=== PATIENT | male | born 1960 | race Caucasian/White ===

== ENCOUNTER 2017-09-18 13:03 | Inpatient (IN) | payer OTHER ==
[2017-09-18] MEDS ORDERED: NITROGLYCERIN (SL) 0.4 MG TAB SL (13:30)
[2017-09-18] MEDS: NITROGLYCERIN 2% 1 GM OINT PKT TD (13:32)
[2017-09-18] MEDS: morphine 4 MG/ML VIAL IV (13:40)
[2017-09-18] MEDS: ONDANSETRON 4 MG INJ IV (13:40)
[2017-09-18 13:57] LABS: ADD MAN DIFF? NO
[2017-09-18 14:00] LABS: BASOPHILS % 0.5 % (0.0-2.0); EOSINOPHILS # 0.3 10^3/ul (0.0-0.5); EOSINOPHILS % 3.2 % (0.0-7.0); HEMATOCRIT 41.1 % (42.0-52.0); HEMOGLOBIN 13.9 g/dl (14.0-18.0); LYMPHOCYTES # 2.7 10^3/ul (0.8-2.9); LYMPHOCYTES % 32.2 % (15.0-51.0); MEAN CORPUSCULAR HGB CONC 33.8 g/dl (32.0-37.0); MEAN CORPUSCULAR VOLUME 94.5 fl (82.0-101.0); MEAN PLATELET VOLUME 11.1 fl (7.4-10.4); MONOCYTE # 0.6 10^3/ul (0.3-0.9); MONOCYTES % 6.7 % (0.0-11.0); NEUTROPHIL # 4.7 10^3/ul (1.6-7.5); PLATELET COUNT 206 10^3/UL (140-415); RED BLOOD COUNT 4.35 10^6/ul (4.70-6.10); RED CELL DISTRIBUTION WIDTH 13.7 % (11.5-14.5)
[2017-09-18 14:00] LABS: WHITE BLOOD COUNT 8.2 10^3/ul (4.8-10.8)
[2017-09-18 14:19] LABS: ANION GAP 16 (8-16); BLOOD UREA NITROGEN 20 mg/dl (7-20); CALCIUM 8.8 mg/dl (8.4-10.2); CARBON DIOXIDE 25 mmol/L (21-31); CHLORIDE 107 mmol/L (97-110); CREATININE 0.73 mg/dl (0.61-1.24); GLUCOSE 140 mg/dl (70-220); POTASSIUM 4.1 mmol/L (3.5-5.1); SODIUM 144 mmol/L (135-144)
[2017-09-18 14:35] LABS: TROPONIN-I < 0.012 ng/ml (0.00-0.12)
[2017-09-18] MEDS ORDERED: ONDANSETRON 4 MG INJ IV ×2 (15:00→16:30)
[2017-09-18] MEDS ORDERED: ACETAMINOPHEN 325 MG TAB PO ×2 (15:00→16:30)
[2017-09-18] MEDS ORDERED: HYDROCODONE/APAP (5/325) TAB PO ×2 (16:30)
[2017-09-18] MEDS ORDERED: NACL 0.9% 3 ML SYG IV (16:30)
[2017-09-18] MEDS ORDERED: ACETAMINOPHEN 650 MG SUPP PR (16:30)
[2017-09-18] MEDS ORDERED: morphine 2 MG INJ IV (16:30)
[2017-09-18] MEDS ORDERED: MAGNESIUM HYDROXIDE 30ML CUP PO (16:30)
[2017-09-18] MEDS ORDERED: BISACODYL 10 MG SUPP PR (16:30)
[2017-09-18] MEDS ORDERED: DOCUSATE SODIUM 100 MG CAP PO (16:30)
[2017-09-18] MEDS ORDERED: ALBUTEROL/IPRATROPIUM (NEB) 3 ML AMP HHN (17:00)
[2017-09-18 20:00] LABS: CREATINE KINASE 50 IU/L (23-200)
[2017-09-18 20:14] LABS: CK INDEX 0.9
[2017-09-18 20:22] LABS: CK-MB 0.43 ng/ml (0.0-2.4); TROPONIN-I < 0.012 ng/ml (0.00-0.12)
[2017-09-18] MEDS ORDERED: TICAGRELOR 90 MG TABLET PO (21:00)
[2017-09-19 01:19] LABS: CREATINE KINASE 46 IU/L (23-200)
[2017-09-19 01:31] LABS: CK INDEX 0.9; TROPONIN-I < 0.012 ng/ml (0.00-0.12)
[2017-09-19] MEDS: PANTOPRAZOLE 40 MG INJ IV (05:45)
[2017-09-19 06:25] LABS: ADD MAN DIFF? NO
[2017-09-19 06:29] LABS: BASOPHILS % 0.2 % (0.0-2.0); EOSINOPHILS # 0.3 10^3/ul (0.0-0.5); EOSINOPHILS % 3.4 % (0.0-7.0); HEMATOCRIT 40.8 % (42.0-52.0); HEMOGLOBIN 13.6 g/dl (14.0-18.0); LYMPHOCYTES # 2.7 10^3/ul (0.8-2.9); LYMPHOCYTES % 30.3 % (15.0-51.0); MEAN CORPUSCULAR HEMOGLOBIN 31.4 pg (29.0-33.0); MEAN CORPUSCULAR HGB CONC 33.3 g/dl (32.0-37.0); MEAN CORPUSCULAR VOLUME 94.2 fl (82.0-101.0); MEAN PLATELET VOLUME 11.2 fl (7.4-10.4); MONOCYTE # 0.6 10^3/ul (0.3-0.9); MONOCYTES % 7.2 % (0.0-11.0); NEUTROPHIL # 5.1 10^3/ul (1.6-7.5); NEUTROPHILS % 58.6 % (39.0-77.0); PLATELET COUNT 176 10^3/UL (140-415); RED BLOOD COUNT 4.33 10^6/ul (4.70-6.10); RED CELL DISTRIBUTION WIDTH 13.8 % (11.5-14.5)
[2017-09-19 06:29] LABS: WHITE BLOOD COUNT 8.7 10^3/ul (4.8-10.8)
[2017-09-19 06:49] LABS: CREATINE KINASE 37 IU/L (23-200)
[2017-09-19 06:53] LABS: INR 0.93; PROTIME 12.6 Sec (11.9-14.9)
[2017-09-19 06:56] LABS: ALANINE AMINOTRANSFERASE 46 IU/L (13-69); ALBUMIN 3.9 g/dl (3.3-4.9); ALBUMIN/GLOBULIN RATIO 1.34; ALKALINE PHOSPHATASE 48 IU/L (42-121); ANION GAP 14 (8-16); ASPARTATE AMINO TRANSFERASE 25 IU/L (15-46); BILIRUBIN,INDIRECT 0.3 mg/dl (0-1.1); BILIRUBIN,TOTAL 0.3 mg/dl (0.2-1.3); BLOOD UREA NITROGEN 25 mg/dl (7-20); CALCIUM 8.7 mg/dl (8.4-10.2); CARBON DIOXIDE 27 mmol/L (21-31); CHLORIDE 107 mmol/L (97-110); CHOL/HDL RATIO 4.9 RATIO; CHOLESTEROL 174 mg/dl (100-200); CREATININE 0.78 mg/dl (0.61-1.24); GLUCOSE 140 mg/dl (70-220); HDL CHOLESTEROL 35 mg/dl (30-78); LDL CHOLESTEROL,CALCULATED 89 mg/dl; MAGNESIUM 2.1 mg/dl (1.7-2.5); POTASSIUM 4.2 mmol/L (3.5-5.1); SODIUM 144 mmol/L (135-144); TOTAL PROTEIN 6.8 g/dl (6.1-8.1); TRIGLYCERIDES 250 mg/dl (0-149)
[2017-09-19 07:03] LABS: CK INDEX 1.3; CK-MB 0.47 ng/ml (0.0-2.4); TROPONIN-I < 0.012 ng/ml (0.00-0.12)
[2017-09-19 07:11] LABS: HEMOGLOBIN A1C 6.1 % (0-5.9)
[2017-09-19 07:30] LABS: B-TYPE NATRIURETIC PEPTIDE 397 PG/ML (0-125)
[2017-09-19] MEDS: LISINOPRIL 5 MG TAB PO (08:28)
[2017-09-19] MEDS: ASPIRIN (EC) 81 MG TAB PO (08:28)
[2017-09-19] MEDS: ATORVASTATIN 80 MG TAB PO (09:00)
[2017-09-19] MEDS: REGADENOSON 0.4 MG/5 ML SYG (09:53)
[2017-09-19 10:12] LABS: FREE THYROXINE INDEX (Calc) 2.42 ug/ml (0.65-3.89); T3 UPTAKE 37.3 % (23.5-40.5); T4 (THYROXINE) 6.5 ug/dl (5.5-11.0)
[2017-09-19] MEDS ORDERED: SOD CHLORIDE 0.9% 100 ML (18:25)
[2017-09-19] MEDS ORDERED: IOHEXOL 100 ML (18:25)
[2017-09-20] MEDS: PANTOPRAZOLE 40 MG INJ IV (05:57)
[2017-09-20] MEDS: ATORVASTATIN 80 MG TAB PO (08:16)
[2017-09-20] MEDS: LISINOPRIL 5 MG TAB PO (08:17)
[2017-09-20] MEDS: ASPIRIN (EC) 81 MG TAB PO (08:17)
[2017-09-21] MEDS: PANTOPRAZOLE 40 MG INJ IV (05:54)
[2017-09-21] MEDS: ASPIRIN (EC) 81 MG TAB PO (08:57)
[2017-09-21] MEDS: LISINOPRIL 5 MG TAB PO (08:57)
[2017-09-21] MEDS: ATORVASTATIN 80 MG TAB PO (11:56)
[2017-09-22] MEDS: PANTOPRAZOLE 40 MG INJ IV (05:34)
[2017-09-22] MEDS: ASPIRIN (EC) 81 MG TAB PO (08:42)
[2017-09-22] MEDS: ATORVASTATIN 80 MG TAB PO (08:43)
[2017-09-22] MEDS: LISINOPRIL 5 MG TAB PO (08:43)
[2017-09-22 08:57] LABS: ADD MAN DIFF? NO
[2017-09-22 09:06] LABS: BASOPHILS % 0.4 % (0.0-2.0); EOSINOPHILS # 0.2 10^3/ul (0.0-0.5); EOSINOPHILS % 2.6 % (0.0-7.0); HEMATOCRIT 41.2 % (42.0-52.0); HEMOGLOBIN 14.2 g/dl (14.0-18.0); LYMPHOCYTES # 2.5 10^3/ul (0.8-2.9); LYMPHOCYTES % 29.9 % (15.0-51.0); MEAN CORPUSCULAR HEMOGLOBIN 31.9 pg (29.0-33.0); MEAN CORPUSCULAR HGB CONC 34.5 g/dl (32.0-37.0); MEAN CORPUSCULAR VOLUME 92.6 fl (82.0-101.0); MEAN PLATELET VOLUME 11.2 fl (7.4-10.4); MONOCYTE # 0.7 10^3/ul (0.3-0.9); MONOCYTES % 8.2 % (0.0-11.0); NEUTROPHIL # 4.9 10^3/ul (1.6-7.5); NEUTROPHILS % 58.1 % (39.0-77.0); PLATELET COUNT 179 10^3/UL (140-415); RED BLOOD COUNT 4.45 10^6/ul (4.70-6.10); RED CELL DISTRIBUTION WIDTH 13.7 % (11.5-14.5)
[2017-09-22 09:06] LABS: WHITE BLOOD COUNT 8.4 10^3/ul (4.8-10.8)
[2017-09-22 09:28] LABS: ANION GAP 16 (8-16); BLOOD UREA NITROGEN 18 mg/dl (7-20); CALCIUM 8.8 mg/dl (8.4-10.2); CARBON DIOXIDE 26 mmol/L (21-31); CHLORIDE 104 mmol/L (97-110); CREATININE 0.78 mg/dl (0.61-1.24); GLUCOSE 130 mg/dl (70-220); POTASSIUM 4.3 mmol/L (3.5-5.1); SODIUM 142 mmol/L (135-144)
[2017-09-23] MEDS: PANTOPRAZOLE (EC) 40 MG TAB PO (05:54)
[2017-09-23] MEDS: LISINOPRIL 5 MG TAB PO (08:31)
[2017-09-23] MEDS: ATORVASTATIN 80 MG TAB PO (08:31)
[2017-09-23] MEDS: ASPIRIN (EC) 81 MG TAB PO (08:32)
== END 2017-09-23 16:55 | disposition home or self-care (01) | DRG 313 ==
LOC: TEL 09-22 06:15 → E/R 13:03 → MS3 14:54 → MS2 09-22 18:05
DX: R07.9 Chest pain, unspecified (principal); I50.30 Unspecified diastolic (congestive) heart failure; F50.2 Bulimia nervosa; I25.10 Atherosclerotic heart disease of native coronary artery without angina pectoris; I25.2 Old myocardial infarction; E78.00 Pure hypercholesterolemia, unspecified; Z87.891 Personal history of nicotine dependence; I73.9 Peripheral vascular disease, unspecified; J44.9 Chronic obstructive pulmonary disease, unspecified
CPT/HCPCS: 71045; 75635; 78452; 80048; 80053; 80061; 82550; 82553; 83036; 83735; 83880; 84100; 84436; 84443; 84479; 84484; 85025; 85610; 93005; 93017; 93306; 99217; 99285-25